=== PATIENT | male | born 1995 | race Caucasian/White ===

== ENCOUNTER 2016-07-10 18:22 | Emergency (ER) | payer BC, OTHER ==
--- NOTE | ~2016-07-10 | CR72 ---
[facility] A Service of [facility] & [facility] RADIOLOGY TEXT RESULTS PATIENT: SANIYA NICKERSON LOCATION: CFTX : 95 UNIT #: [id number] AGE: [address]: AASHISH OLIVARES SEX: M ORDER DR: [id number] [facility] [address] [place], [place] [address] [id number] E MR#: [id number] Acc #: [id number] NAME: SANIYA NICKERSON : 1995 SEX: M STUDY DATE/TIME: 07/10/2016 18:19 UNIT: CFTX ROOM: STUDY DESCRIPTION: CR Chest Single View Portable Attending Physician: Aashish Olivares A.P.R.N. Ordering Physician: Aashish Olivares A.P.R.N. Primary Care Physician: Moise Mosquera M.D. MEDICAL IMAGING REPORT This report is preliminary unless electronic signature is present EXAM Portable chest, 07/10/2016 HISTORY 20-year-old male with cough and chest pain beginning today. COMPARISON Chest, 12/10/2005 FINDINGS Frontal chest demonstrates clear lungs. No pleural effusion or pneumothorax. Heart size and mediastinum are normal. Pulmonary vasculature normal. There is dextroconvex scoliosis upper thoracic spine. IMPRESSION No acute cardiopulmonary findings. Dextroconvex scoliosis upper thoracic spine. Dictated by... Aashish Fernandez M.D. THIS IS AN ELECTRONICALLY VERIFIED REPORT Aashish Fernandez M.D. at 07/12/2016 3:39 PM Min TD: 07/11/2016 09:46 JOB #: [id number] MEDICAL IMAGING REPORT COPY
== END 2016-07-10 19:20 | disposition home or self-care (01) ==
LOC: CFTX 18:22
DX: J20.9 Acute bronchitis, unspecified (principal); F17.200 Nicotine dependence, unspecified, uncomplicated
CPT/HCPCS: 71010; 87651; 99283